=== PATIENT | female | born 1960 | race Caucasian/White ===

== ENCOUNTER 2018-11-04 09:39 | Emergency (ER) | payer OTHER ==
[2018-11-04] MEDS ORDERED: methylPREDNISolone ACETATE 80 MG/ML VIAL IM ONE (10:01)
--- NOTE | 2018-11-04 10:06 | ED Physician Documentation ---
Skin Rash - HPI Stated Complaint: Bug bites Chief Complaint: Skin Rash Onset: days ago (2) Timing: still present Duration: worse Location: generalized Quality: itchy, painful Identified Cause?: Yes Where: other (hotel stay) Context: Medication Exposure: none Context: Food Exposure: none Further Comments: yes (She reports two days ago they stayed a hotel she woke and noticed a few bites - she actually thought she had a reaction to a new soap she used. she states she did not notice a decrease in the rash after benadryl x 2 days. She has had increased areas, swelling and she has an area on her right arm she is concerned is infected. she denies a fever. She is assuming she has bed bug bites) - ROS CONST: none MS/SKIN/LYMPH: rash - PAST HX Past History: none Other History: none Immunizations: UTD Allergies/Adverse Reactions: Allergies Allergy/AdvReac Type Severity Reaction Status Date / Time No Known Drug Allergies Allergy Verified 11/04/18 10:00 Home Medications: Ambulatory Orders Medication Instructions Recorded Levothyroxine Sodium 100 mcg PO DAILY u2 10/17/14 Loratadine/Pseudoephedrine 1 each PO DAILY PRN u2 10/17/14 [Claritin-D 24 Hour Tablet] Sumatriptan Succinate 100 mg PO DAILY u2 10/17/14 Loratadine [Claritin] 10 mg PO D #20 tablet 05/29/15 Ranitidine HCl [Zantac] 300 mg PO D #30 tablet 05/29/15 methylPREDNISolone SOD SUCC 125 mg IM 1T #125 vial 05/29/15 [Solu-MEDROL] predniSONE [Prednisone] 10 mg PO TID #30 tab.ds.pk 05/29/15 - SOCIAL HX Smoking History: non-smoker Alcohol Use: none Drug Use: none - FAMILY HX Family History: none - VITAL SIGNS Vital Signs: Vital Signs Temp Pulse Resp BP Pulse Ox 97.8 F 94 H 17 138/96 99 11/04/18 09:55 11/04/18 09:55 11/04/18 09:55 11/04/18 09:55 11/04/18 09:55 - REVIEWED ASSESSMENTS Nursing Assessment Reviewed: Yes Vitals Reviewed: Yes ED Results Lab/Radiology - Orders Orders: ED Orders Category Date Time Status methylPREDNISolone ACETATE [Depo-Medrol] Med 11/04/18 10:01 Once 80 mg IM NOW ONE Skin Rash Physical Exam - EXAM General Appearance: no acute distress, alert Skin: warm,dry, other (areas on bilateral arms, neck with large red raised round areas. Crusting areas noted ) Character: symmetric, maculopapular, erythematous Symptoms: warmth, swelling, scaling, weeping, crusting Extremities: non-tender EENT: eyes nml inspection Neck: trachea midline Respiratory: no resp distress, chest non-tender, breath sounds normal CVS: reg. rate & rhythm Abdomen: non-tender Neuro/Psych: oriented x3 Discharge Clincal Impression: Insect bite Qualifiers: Encounter type: initial encounter Site of insect bite: unspecified site Qualified Code(s): W57.XXXA - Bitten or stung by nonvenomous insect and other nonvenomous arthropods, initial encounter Referrals: Edgard Lane MD [Primary Care Provider] - 2 Days Comments: 1. Continue OTC meds for relief of symptoms 2. Prednisone 20 mg take 1 by mouth daily x 5 days 3. Bactrim DS take 1 by mouth twice daily x 10 days 4. Clean home as directed 5. See PCP if no improvement in 2-4 days 6 .Return to ER for any concerns Condition: Stable Disposition: 01 HOME, SELF-CARE Decision to Admit: NO Date of Decison to Admit: 11/04/18 Decision Time: 10:10
[2018-11-04 10:40] VITALS: BP 134/84
== END 2018-11-04 10:35 | disposition home or self-care (01) ==
LOC: ED 09:39
DX: S40.862A Insect bite (nonvenomous) of left upper arm, initial encounter (principal); S40.861A Insect bite (nonvenomous) of right upper arm, initial encounter; S10.96XA Insect bite of unspecified part of neck, initial encounter; W57.XXXA Bitten or stung by nonvenomous insect and other nonvenomous arthropods, initial encounter; Y93.9 Activity, unspecified; Y92.59 Other trade areas as the place of occurrence of the external cause
CPT/HCPCS: 96372; 99283; J1040

== ENCOUNTER 2019-01-31 18:59 | Emergency (ER) | payer OTHER ==
[2019-01-31] MEDS ORDERED: cefTRIAXone SODIUM 1 GM INJ ONE (20:05)
[2019-01-31] MEDS ORDERED: methylPREDNISolone SOD SUCC 125 MG/2 ML VIAL ONE (20:05)
[2019-01-31] MEDS ORDERED: hydrOXYzine HCL 25 MG TABLET PO ONE (20:05)
[2019-01-31] MEDS ORDERED: LIDOCAINE HCL 1% MDV 200MG/20ML VIAL ONE (20:05)
== END 2019-01-31 20:45 | disposition home or self-care (01) ==
LOC: ED 18:59
DX: S40.862A Insect bite (nonvenomous) of left upper arm, initial encounter (principal); S40.861A Insect bite (nonvenomous) of right upper arm, initial encounter; W57.XXXA Bitten or stung by nonvenomous insect and other nonvenomous arthropods, initial encounter; Y99.8 Other external cause status
CPT/HCPCS: 96372; 99283; J0696; J2930